=== PATIENT | female | born 1925 | race Caucasian/White ===

== ENCOUNTER → 2016-10-16 | Outpatient (CLI) | payer MEDICARE, OTHER ==
[~2016-10-16] MED LIST: ARIP2TAB3; ATEN-51; CALC-600; LIT300; SIMV20TA
--- NOTE | 2016-10-16 14:55 | RADRPT ---
PROCEDURE: XR pelvis/left hip. CLINICAL INDICATION: Hip pain TECHNIQUE: AP pelvis/AP and lateral left hip views available for review. COMPARISON: 04/19/2016 FINDINGS: There is no change in the left hip hemiarthroplasty. There is no evidence of loosening of the prosth esis. There is mild to moderate right hip osteoarthrosis. This is associated with joint space narrowing, s ubchondral sclerosis and osteophytosis. There is diffuse osteopenia. No fractures or osseous lesions are identified. The soft tissues are unremarkable. IMPRESSION: Left hip hemiarthroplasty Mild to moderate right hip osteoarthrosis. Diffuse osteopenia Unchanged from the previous examination RPTAT: [facility] .Frandy Kat MD, MD Date Time Electronically viewed and signed by .Frandy Kat MD, on 10/16/2016 14:54 .B/
== END | disposition home or self-care (01) ==
LOC: HKI 13:17
PROVIDERS: ATTEND Orthopaedic Surgery
DX: Z47.89 Encounter for other orthopedic aftercare (principal); Z96.642 Presence of left artificial hip joint
CPT/HCPCS: 73502; G0463